=== PATIENT | female | born 1970 | race African-American/Black ===

== ENCOUNTER 2020-10-05 18:43 | Inpatient (IN) | payer BC ==
[2020-10-05] MEDS ORDERED: VANCOMYCIN 1 GM in D5W (PRE-DOCKED) 1,000 MG/250 ML IVPB ONE (19:50)
[2020-10-05] MEDS ORDERED: PIPERACILLIN/TAZOB 3.375 GM 3.375 GM in DEXTROSE 5%-WATER - 50 ML IVPB ONE (19:51)
[2020-10-05] MEDS ORDERED: PIPERACILLIN/TAZOB 3.375 GM 3.375 GM/50 ML BAG IVPB ONE (20:08)
[2020-10-05 20:20] LABS: HEMOGLOBIN 11.4 GM/dL (10.7-15.3); MCH 24.4 pg (25.7-33.7); MCHC 31.8 g/dl (32.0-36.0); MEAN CELL VOLUME 76.7 fl (80-96); MEAN PLT VOLUME 7.6 fl (7.5-11.1); PLATELET COUNT 304 K/MM3 (134-434); RBC 4.69 M/mm3 (3.60-5.2); RDW 17.7 % (11.6-15.6); WHITE BLOOD COUNT 6.5 K/mm3 (4.0-10.0)
[2020-10-05 20:27] LABS: INR 0.86 (0.83-1.09); PROTHROMBIN TIME (PATIENT) 10.6 SEC (9.7-13.0)
[2020-10-05 20:39] LABS: POTASSIUM 4.2 mmol/L (3.5-5.1)
[2020-10-05 20:43] LABS: ALBUMIN 3.7 g/dl (3.4-5.0); BLOOD UREA NITROGEN 11.6 mg/dL (7-18); CALCIUM 9.1 mg/dL (8.5-10.1)
[2020-10-05 20:47] LABS: CREATININE 0.8 mg/dL (0.55-1.3)
[2020-10-05] MEDS ORDERED: VANCOMYCIN 1 GRAM (PRE-DOCKED) 1,000 MG/250 ML BAG IVPB ONE (20:54)
[2020-10-05] MEDS ORDERED: SODIUM CHLORIDE 0.9% 500 ML INFUS.BAG IV ONE (21:19)
[2020-10-05] MEDS ORDERED: INSULIN REGULAR HUMAN 100 UNITS/ML *VIAL SQ ONE (21:20)
[2020-10-05] MEDS ORDERED: INSULIN REGULAR HUMAN 100 UNITS/ML *VIAL ONE (21:28)
[2020-10-06] MEDS ORDERED: INSULIN SLIDING SCALE (NOVOLOG) 1 VIAL SQ SCH (00:30)
[2020-10-06] MEDS ORDERED: VANCOMYCIN 1 GM PREMIX - 1 GM/200 ML BAG IVPB SCH ×2 (00:45→21:00)
[2020-10-06] MEDS ORDERED: PIPERACILLIN/TAZOB 3.375 GM 3.375 GM in DEXTROSE 5%-WATER - 50 ML IVPB SCH (00:45)
[2020-10-06] MEDS ORDERED: PREGABALIN 100 MG CAPSULE ONE ×2 (01:59→14:07)
[2020-10-06] MEDS: PREGABALIN 100 MG CAPSULE PO SCH ×4 (02:01→22:02)
[2020-10-06] MEDS: TIZANIDINE HCL 2 MG TABLET PO SCH ×4 (02:54→22:02)
[2020-10-06] MEDS: DULoxetine HCL 20 MG CAPSULE.DR PO SCH ×2 (02:54→10:13)
[2020-10-06] MEDS ORDERED: PIPERACILLIN/TAZOB 3.375 GM 3.375 GM/50 ML BAG IVPB ONE ×2 (06:11→11:03)
[2020-10-06] MEDS: PIPERACILLIN/TAZOB 3.375 GM 3.375 GM in DEXTROSE 5%-WATER - 50 ML IVPB SCH ×3 (06:19→17:25)
[2020-10-06] MEDS: INSULIN SLIDING SCALE (NOVOLOG) 1 VIAL SQ SCH ×4 (07:38→22:14)
[2020-10-06 07:53] LABS: INR 0.83 (0.83-1.09); PROTHROMBIN TIME (PATIENT) 10.3 SEC (9.7-13.0)
[2020-10-06 07:56] LABS: ACTIVATED PTT 26.1 SECONDS (25.2-36.5)
[2020-10-06 08:00] LABS: HEMATOCRIT 34.2 % (32.4-45.2); HEMOGLOBIN 10.9 GM/dL (10.7-15.3); MCH 24.3 pg (25.7-33.7); MCHC 31.8 g/dl (32.0-36.0); MEAN CELL VOLUME 76.3 fl (80-96); MEAN PLT VOLUME 7.9 fl (7.5-11.1); PLATELET COUNT 296 K/MM3 (134-434); RBC 4.48 M/mm3 (3.60-5.2); RDW 17.3 % (11.6-15.6); WHITE BLOOD COUNT 5.3 K/mm3 (4.0-10.0)
[2020-10-06 08:04] LABS: CHLORIDE 107 mmol/L (98-107); POTASSIUM 4.2 mmol/L (3.5-5.1); SODIUM 141 mmol/L (136-145)
[2020-10-06 08:16] LABS: CHOLESTEROL 213 mg/dL (50-200); TRIGLYCERIDES 52 mg/dL (0-150)
[2020-10-06 08:17] LABS: ANION GAP 8 MMOL/L (8-16); BLOOD UREA NITROGEN 10.7 mg/dL (7-18); CALCIUM 8.5 mg/dL (8.5-10.1); CO2 27 mmol/L (21-32); GLUCOSE,RANDOM 129 mg/dL (74-106); LDL CHOLESTEROL (ONLY SJRH) 106 mg/dL (5-100)
[2020-10-06 08:18] LABS: MAGNESIUM 1.9 mg/dL (1.8-2.4)
[2020-10-06 08:19] LABS: HDL CHOLESTEROL 98 mg/dL (40-60); SGPT/ALT 18 U/L (13-61)
[2020-10-06 08:20] LABS: CREATININE 0.6 mg/dL (0.55-1.3); PHOSPHOROUS 4.3 mg/dL (2.5-4.9); SGOT/AST 13 U/L (15-37)
[2020-10-06 08:21] LABS: BILIRUBIN,TOTAL 0.5 mg/dL (0.2-1); TOT PROT 5.8 g/dl (6.4-8.2)
[2020-10-06 08:22] LABS: ALK PHOS 80 U/L (45-117)
[2020-10-06] MEDS ORDERED: LISINOPRIL 5 MG TABLET ONE (10:03)
[2020-10-06] MEDS ORDERED: PT OWN MED DRAWER 7, Y5N ONE (10:05)
[2020-10-06] MEDS: LISINOPRIL 5 MG TABLET PO SCH (10:55)
[2020-10-06 15:19] LABS: RETICULOCYTES 1.13 % (0.5-1.5)
[2020-10-06 15:42] LABS: IRON SERUM 40 ug/dL (50-175)
[2020-10-06 15:43] LABS: TOTAL IRON BINDING CAPACITY 364 ug/dL (250-450)
[2020-10-06 15:47] LABS: ERYTHROCYTE SEDIMENTATION RATE 9 mm/hr (0-30)
[2020-10-06] MEDS ORDERED: INSULIN (LEVEMIR) 100 UNITS/ML UNITS SQ SCH (22:00)
[2020-10-06] MEDS: ATORVASTATIN CA 40 MG TABLET (FP) PO SCH (22:02)
[2020-10-06 22:37] VITALS: BMI 22.4
[2020-10-07] MEDS ORDERED: DEXTROSE 5%-WATER - 50 ML IVPB ONE ×3 (00:07→17:36)
[2020-10-07] MEDS ORDERED: PIPERACILLIN/TAZOBACTAM 3.375 GM VIAL IVPB ONE ×3 (00:07→17:36)
[2020-10-07] MEDS: PIPERACILLIN/TAZOB 3.375 GM 3.375 GM in DEXTROSE 5%-WATER - 50 ML IVPB SCH ×3 (02:12→18:56)
[2020-10-07] MEDS ORDERED: PIPERACILLIN/TAZOB 3.375 GM 3.375 GM in DEXTROSE 5%-WATER - 50 ML IVPB SCH (03:00)
[2020-10-07] MEDS: TIZANIDINE HCL 2 MG TABLET PO SCH ×3 (05:46→21:02)
[2020-10-07] MEDS: PREGABALIN 100 MG CAPSULE PO SCH ×3 (05:46→21:02)
[2020-10-07] MEDS: INSULIN SLIDING SCALE (NOVOLOG) 1 VIAL SQ SCH ×4 (06:09→21:06)
[2020-10-07] MEDS ORDERED: INSULIN (LEVEMIR) 100 UNITS/ML UNITS SQ SCH (07:00)
[2020-10-07 08:54] LABS: BASO % 0.8 % (0-2.0); EOS % 1.6 % (0-4.5); HEMOGLOBIN 11.4 GM/dL (10.7-15.3); LYMPH % 37.5 % (8-40); MCH 24.2 pg (25.7-33.7); MCHC 31.6 g/dl (32.0-36.0); MEAN CELL VOLUME 76.6 fl (80-96); MEAN PLT VOLUME 7.9 fl (7.5-11.1); MONO % 7.3 % (3.8-10.2); NEUT % 52.8 % (42.8-82.8); PLATELET COUNT 321 K/MM3 (134-434); RBC 4.71 M/mm3 (3.60-5.2); RDW 17.6 % (11.6-15.6); WHITE BLOOD COUNT 6.7 K/mm3 (4.0-10.0)
[2020-10-07 09:15] LABS: CHLORIDE 103 mmol/L (98-107); POTASSIUM 4.5 mmol/L (3.5-5.1); SODIUM 137 mmol/L (136-145)
[2020-10-07 09:18] LABS: ALBUMIN 3.3 g/dl (3.4-5.0); ANION GAP 8 MMOL/L (8-16); CO2 27 mmol/L (21-32); GLUCOSE,RANDOM 129 mg/dL (74-106); MAGNESIUM 1.9 mg/dL (1.8-2.4)
[2020-10-07 09:19] LABS: BLOOD UREA NITROGEN 9.8 mg/dL (7-18)
[2020-10-07 09:21] LABS: CREATININE 0.6 mg/dL (0.55-1.3); SGOT/AST 13 U/L (15-37); SGPT/ALT 18 U/L (13-61)
[2020-10-07 09:22] LABS: BILIRUBIN,TOTAL 0.9 mg/dL (0.2-1); TOT PROT 6.4 g/dl (6.4-8.2)
[2020-10-07 09:23] LABS: ALK PHOS 82 U/L (45-117); PHOSPHOROUS 4.4 mg/dL (2.5-4.9)
[2020-10-07 10:33] LABS: ERYTHROCYTE SEDIMENTATION RATE 9 mm/hr (0-30)
[2020-10-07] MEDS ORDERED: PT OWN MED DRAWER 7, Y5N ONE (11:39)
[2020-10-07] MEDS: LISINOPRIL 5 MG TABLET PO SCH (11:45)
[2020-10-07] MEDS: DULoxetine HCL 20 MG CAPSULE.DR PO SCH (11:45)
[2020-10-07] MEDS ORDERED: INSULIN (NOVOLOG) ASPART 100 UNITS/ML 10ML VIAL ONE (20:22)
[2020-10-07] MEDS ORDERED: VANCOMYCIN 1 GM PREMIX - 1 GM/200 ML BAG IVPB SCH (21:00)
[2020-10-07] MEDS: ATORVASTATIN CA 40 MG TABLET (FP) PO SCH (21:03)
[2020-10-07] MEDS: INSULIN (LEVEMIR) 100 UNITS/ML UNITS SQ SCH (21:05)
[2020-10-08] MEDS ORDERED: DEXTROSE 5%-WATER - 50 ML IVPB ONE ×3 (02:47→18:00)
[2020-10-08] MEDS ORDERED: PIPERACILLIN/TAZOBACTAM 3.375 GM VIAL IVPB ONE ×3 (02:47→18:00)
[2020-10-08] MEDS: PIPERACILLIN/TAZOB 3.375 GM 3.375 GM in DEXTROSE 5%-WATER - 50 ML IVPB SCH ×3 (03:18→18:05)
[2020-10-08] MEDS ORDERED: INSULIN (NOVOLOG) ASPART 100 UNITS/ML 10ML VIAL ONE (06:13)
[2020-10-08] MEDS: PREGABALIN 100 MG CAPSULE PO SCH ×3 (06:52→21:48)
[2020-10-08] MEDS: INSULIN SLIDING SCALE (NOVOLOG) 1 VIAL SQ SCH ×4 (06:53→21:49)
[2020-10-08] MEDS: TIZANIDINE HCL 2 MG TABLET PO SCH ×3 (06:53→21:48)
[2020-10-08] MEDS: INSULIN (LEVEMIR) 100 UNITS/ML UNITS SQ SCH ×2 (06:53→21:48)
[2020-10-08 08:50] LABS: BASO % 0.8 % (0-2.0); EOS % 1.6 % (0-4.5); HEMATOCRIT 36.4 % (32.4-45.2); HEMOGLOBIN 11.1 GM/dL (10.7-15.3); LYMPH % 32.7 % (8-40); MCH 23.5 pg (25.7-33.7); MCHC 30.6 g/dl (32.0-36.0); MEAN CELL VOLUME 76.8 fl (80-96); MEAN PLT VOLUME 7.6 fl (7.5-11.1); NEUT % 56.9 % (42.8-82.8); PLATELET COUNT 292 K/MM3 (134-434); RBC 4.73 M/mm3 (3.60-5.2); RDW 17.6 % (11.6-15.6); WHITE BLOOD COUNT 6.1 K/mm3 (4.0-10.0)
[2020-10-08 08:58] LABS: POTASSIUM 4.3 mmol/L (3.5-5.1)
[2020-10-08 09:02] LABS: CALCIUM 8.7 mg/dL (8.5-10.1); MAGNESIUM 1.9 mg/dL (1.8-2.4)
[2020-10-08 09:03] LABS: BLOOD UREA NITROGEN 9.2 mg/dL (7-18)
[2020-10-08 09:05] LABS: CREATININE 0.5 mg/dL (0.55-1.3)
[2020-10-08 09:07] LABS: BILIRUBIN,TOTAL 0.6 mg/dL (0.2-1); TOT PROT 5.9 g/dl (6.4-8.2)
[2020-10-08] MEDS: LISINOPRIL 5 MG TABLET PO SCH (09:41)
[2020-10-08] MEDS: DULoxetine HCL 20 MG CAPSULE.DR PO SCH (09:41)
[2020-10-08] MEDS: ATORVASTATIN CA 40 MG TABLET (FP) PO SCH (21:48)
[2020-10-09] MEDS ORDERED: PIPERACILLIN/TAZOBACTAM 3.375 GM VIAL IVPB ONE ×3 (01:26→17:30)
[2020-10-09] MEDS ORDERED: DEXTROSE 5%-WATER - 50 ML IVPB ONE ×3 (01:26→17:30)
[2020-10-09] MEDS: PIPERACILLIN/TAZOB 3.375 GM 3.375 GM in DEXTROSE 5%-WATER - 50 ML IVPB SCH ×3 (01:30→17:32)
[2020-10-09] MEDS ORDERED: DEXTROSE 50%-WATER 25 GM/50 ML DISP.SYRIN IVPUSH ONE (02:52)
[2020-10-09] MEDS ORDERED: DEXTROSE 50%-WATER 25 GM/50 ML DISP.SYRIN ONE (02:55)
[2020-10-09] MEDS: PREGABALIN 100 MG CAPSULE PO SCH ×3 (06:34→22:12)
[2020-10-09] MEDS: INSULIN (LEVEMIR) 100 UNITS/ML UNITS SQ SCH ×2 (06:35→22:13)
[2020-10-09] MEDS: INSULIN SLIDING SCALE (NOVOLOG) 1 VIAL SQ SCH ×4 (06:35→22:13)
[2020-10-09] MEDS: TIZANIDINE HCL 2 MG TABLET PO SCH ×3 (06:35→22:12)
[2020-10-09 06:54] LABS: BASO % 1.2 % (0-2.0); EOS % 1.3 % (0-4.5); HEMATOCRIT 36.5 % (32.4-45.2); HEMOGLOBIN 11.6 GM/dL (10.7-15.3); LYMPH % 28.9 % (8-40); MCH 24.4 pg (25.7-33.7); MCHC 31.8 g/dl (32.0-36.0); MEAN CELL VOLUME 76.6 fl (80-96); MONO % 7.6 % (3.8-10.2); PLATELET COUNT 285 K/MM3 (134-434); RBC 4.76 M/mm3 (3.60-5.2); RDW 17.7 % (11.6-15.6); WHITE BLOOD COUNT 7.9 K/mm3 (4.0-10.0)
[2020-10-09 07:07] LABS: POTASSIUM 4.7 mmol/L (3.5-5.1)
[2020-10-09 07:09] LABS: BLOOD UREA NITROGEN 9.9 mg/dL (7-18); CALCIUM 8.6 mg/dL (8.5-10.1)
[2020-10-09 07:13] LABS: CREATININE 0.6 mg/dL (0.55-1.3)
[2020-10-09] MEDS: LISINOPRIL 5 MG TABLET PO SCH (09:26)
[2020-10-09] MEDS: DULoxetine HCL 20 MG CAPSULE.DR PO SCH (09:26)
[2020-10-09 10:52] LABS: PLATELET ESTIMATE NORMAL
[2020-10-09] MEDS ORDERED: INSULIN (NOVOLOG) ASPART 100 UNITS/ML 10ML VIAL ONE (11:07)
[2020-10-09] MEDS ORDERED: INSULIN (LEVEMIR) 100 UNITS/ML UNITS SQ SCH ×3 (11:44→23:40)
[2020-10-09] MEDS: ATORVASTATIN CA 40 MG TABLET (FP) PO SCH (22:12)
[2020-10-09] MEDS ORDERED: SODIUM CHLORIDE 500 ML IV STA (23:28)
[2020-10-10] MEDS ORDERED: PIPERACILLIN/TAZOBACTAM 3.375 GM VIAL IVPB ONE ×3 (02:43→17:07)
[2020-10-10] MEDS ORDERED: DEXTROSE 5%-WATER - 50 ML IVPB ONE ×3 (02:43→17:07)
[2020-10-10] MEDS: PIPERACILLIN/TAZOB 3.375 GM 3.375 GM in DEXTROSE 5%-WATER - 50 ML IVPB SCH ×3 (02:45→17:11)
[2020-10-10] MEDS: PREGABALIN 100 MG CAPSULE PO SCH ×2 (06:00→14:00)
[2020-10-10] MEDS: TIZANIDINE HCL 2 MG TABLET PO SCH ×2 (06:00→14:00)
[2020-10-10] MEDS: INSULIN SLIDING SCALE (NOVOLOG) 1 VIAL SQ SCH ×3 (06:05→17:18)
[2020-10-10] MEDS ORDERED: PT OWN MED DRAWER 7, Y5N ONE (09:26)
[2020-10-10 09:31] LABS: BASO % 0.9 % (0-2.0); EOS % 3.1 % (0-4.5); HEMATOCRIT 37.5 % (32.4-45.2); LYMPH % 31.8 % (8-40); MCH 24.5 pg (25.7-33.7); MCHC 31.9 g/dl (32.0-36.0); MEAN CELL VOLUME 76.8 fl (80-96); MEAN PLT VOLUME 7.4 fl (7.5-11.1); NEUT % 56.2 % (42.8-82.8); PLATELET COUNT 326 K/MM3 (134-434); RBC 4.89 M/mm3 (3.60-5.2); RDW 17.7 % (11.6-15.6); WHITE BLOOD COUNT 7.2 K/mm3 (4.0-10.0)
[2020-10-10] MEDS: DULoxetine HCL 20 MG CAPSULE.DR PO SCH (09:32)
[2020-10-10 09:44] LABS: POTASSIUM 4.8 mmol/L (3.5-5.1)
[2020-10-10 10:03] LABS: BLOOD UREA NITROGEN 10.3 mg/dL (7-18)
[2020-10-10 10:06] LABS: CREATININE 0.7 mg/dL (0.55-1.3)
[2020-10-10 14:21] VITALS: BP 112/73; PULSE 73; TEMP 98.3
== END 2020-10-10 18:17 | disposition home or self-care (01) | DRG 638 ==
LOC: JER 18:43 → JERBED 20:12 → J8W 10-06 21:21
PROVIDERS: ADMIT Internal Medicine; ATTEND Internal Medicine
PROC: 02HV33Z Insertion of Infusion Device into Superior Vena Cava, Percutaneous Approach (ICD-10-PCS; principal; 2020-10-10)
PROC: B518ZZA Fluoroscopy of Superior Vena Cava, Guidance (ICD-10-PCS; 2020-10-10)
PROC: B50MYZZ Plain Radiography of Right Upper Extremity Veins using Other Contrast (ICD-10-PCS; 2020-10-10)
DX: E11.69 Type 2 diabetes mellitus with other specified complication (principal); M86.9 Osteomyelitis, unspecified; L02.611 Cutaneous abscess of right foot; E11.65 Type 2 diabetes mellitus with hyperglycemia; E11.40 Type 2 diabetes mellitus with diabetic neuropathy, unspecified; E11.621 Type 2 diabetes mellitus with foot ulcer; L97.519 Non-pressure chronic ulcer of other part of right foot with unspecified severity; L60.0 Ingrowing nail; F17.210 Nicotine dependence, cigarettes, uncomplicated; B95.61 Methicillin susceptible Staphylococcus aureus infection as the cause of diseases classified elsewhere; L03.031 Cellulitis of right toe
CPT/HCPCS: 36415; 36569; 73630-TC-RT-FY; 73660-TC-FY; 73718-TC-RT; 75820-TC-FY; 77001-TC-FY; 78315-TC; 80048; 80053; 80061; 82607; 82746; 82962; 83036; 83540; 83550; 83605; 83721; 83735; 84100; 84466; 84703; 85025; 85027; 85045; 85610; 85651; 85730; 86140; 86850; 86900; 86901; 87040; 87070; 87186; 87205; 93005; 93010; 99285-25; A9503; C1751; C9803; U0003

== ENCOUNTER 2020-10-23 08:41 | Inpatient (IN) | payer BC ==
[2020-10-23] MEDS ORDERED: SODIUM CHLORIDE 1,000 ML IV STA ×2 (08:53→08:58)
[2020-10-23 09:35] LABS: EPI CELLS 15 /uL (0-25.1); HYALINE CASTS 1 /uL (0-3.1); URINE APPEARANCE CLEAR; URINE BACTERIA 51 /uL (0-1359); URINE BILIRUBIN NEGATIVE (NEGATIVE); URINE COLOR YELLOW; URINE GLUCOSE (UA) 3+ (NEGATIVE); URINE KETONE 3+ (NEGATIVE); URINE LEUK ESTERASE NEGATIVE (NEGATIVE); URINE NITRITE NEGATIVE (NEGATIVE); URINE PROTEIN TRACE (NEGATIVE); URINE RBC 6 /uL (0-23.9); URINE UROBILINOGEN 0.2 mg/dL (0.2-1.0); URINE WBC 6 /uL (0-25.8)
[2020-10-23 09:45] LABS: BASO % 0.5 % (0-2.0); HEMATOCRIT 40.9 % (32.4-45.2); HEMOGLOBIN 11.8 GM/dL (10.7-15.3); LYMPH % 6.9 % (8-40); MCH 24.7 pg (25.7-33.7); MCHC 28.9 g/dl (32.0-36.0); MEAN CELL VOLUME 85.6 fl (80-96); MEAN PLT VOLUME 8.8 fl (7.5-11.1); MONO % 5.6 % (3.8-10.2); PLATELET COUNT 373 K/MM3 (134-434); RBC 4.78 M/mm3 (3.60-5.2); RDW 19.7 % (11.6-15.6); WHITE BLOOD COUNT 24.8 K/mm3 (4.0-10.0)
[2020-10-23 09:53] LABS: INR 0.88 (0.83-1.09); PROTHROMBIN TIME (PATIENT) 10.9 SEC (9.7-13.0)
[2020-10-23 09:56] LABS: ACTIVATED PTT 28.4 SECONDS (25.2-36.5)
[2020-10-23 10:12] LABS: ALBUMIN 4.3 g/dl (3.4-5.0); CALCIUM 9.6 mg/dL (8.5-10.1)
[2020-10-23 10:14] LABS: CREATININE 1.9 mg/dL (0.55-1.3)
[2020-10-23 10:15] LABS: BILIRUBIN,TOTAL 0.6 mg/dL (0.2-1); TOT PROT 7.9 g/dl (6.4-8.2)
[2020-10-23 10:21] LABS: BLOOD UREA NITROGEN 36.6 mg/dL (7-18); MAGNESIUM 2.5 mg/dL (1.8-2.4)
[2020-10-23 10:23] LABS: PHOSPHOROUS 8.1 mg/dL (2.5-4.9)
[2020-10-23 10:25] LABS: POTASSIUM 6.1 mmol/L (3.5-5.1)
[2020-10-23 10:30] LABS: VENOUS BASE EXCESS -24.9 mmol/L (-2-2); VENOUS O2 SATURATION 47.2 % (70-80); VENOUS PCO2 27.9 mmHg (38-52)
[2020-10-23 10:32] LABS: VENOUS PH 6.953 (7.310-7.410)
[2020-10-23] MEDS ORDERED: INSULIN REGULAR HUMAN 100 UNITS/ML *VIAL* (FOR IVP) IVPUSH ONE (10:32)
[2020-10-23] MEDS ORDERED: INSULIN REGULAR 100 UNITS in SODIUM CHLORIDE 99 ML IVPB SCH ×2 (10:45→18:45)
[2020-10-23] MEDS ORDERED: VANCOMYCIN 1 GM in D5W (PRE-DOCKED) 1,000 MG/250 ML IVPB ONE ×2 (10:52→23:15)
[2020-10-23] MEDS ORDERED: PIPERACILLIN/TAZOB 2.25 GM 2.25 GM in DEXTROSE 5%-WATER - 50 ML IVPB ONE (10:53)
[2020-10-23 13:00] LABS: ANISOCYTOSIS 0; MACROCYTOSIS 0; PLATELET ESTIMATE NORMAL
[2020-10-23] MEDS ORDERED: PIPERACILLIN/TAZOB 2.25 GM 2.25 GM/50 ML BAG IVPB ONE ×3 (13:06→21:36)
[2020-10-23] MEDS ORDERED: VANCOMYCIN 1 GRAM (PRE-DOCKED) 1,000 MG/250 ML BAG IVPB ONE (13:06)
[2020-10-23 13:37] LABS: POTASSIUM 4.7 mmol/L (3.5-5.1)
[2020-10-23 13:38] LABS: CALCIUM 8.6 mg/dL (8.5-10.1)
[2020-10-23 13:42] LABS: CREATININE 1.7 mg/dL (0.55-1.3)
[2020-10-23] MEDS ORDERED: SODIUM CHLORIDE 0.9%/KCL 20 MEQ/1,000 ML INFUS.BAG IV SCH (14:15)
[2020-10-23] MEDS: PIPERACILLIN/TAZOB 2.25 GM 2.25 GM in DEXTROSE 5%-WATER - 50 ML IVPB SCH ×2 (15:37→21:36)
[2020-10-23 15:38] LABS: POTASSIUM 4.8 mmol/L (3.5-5.1)
[2020-10-23 15:39] LABS: CALCIUM 8.6 mg/dL (8.5-10.1)
[2020-10-23 15:41] LABS: BLOOD UREA NITROGEN 33.3 mg/dL (7-18)
[2020-10-23 15:42] LABS: CREATININE 1.6 mg/dL (0.55-1.3)
[2020-10-23] MEDS ORDERED: LACTATED RINGERS SOLUTION 1000 ML INFUS.BAG IV ONE ×2 (17:50→19:27)
[2020-10-23 18:07] LABS: POTASSIUM 4.6 mmol/L (3.5-5.1)
[2020-10-23 18:08] LABS: CALCIUM 8.6 mg/dL (8.5-10.1)
[2020-10-23 18:09] LABS: BLOOD UREA NITROGEN 30.6 mg/dL (7-18)
[2020-10-23 18:12] LABS: CREATININE 1.5 mg/dL (0.55-1.3)
[2020-10-23 18:17] LABS: VENOUS BASE EXCESS -14.7 mmol/L (-2-2); VENOUS O2 SATURATION 63.1 % (70-80); VENOUS PCO2 27.4 mmHg (38-52); VENOUS PH 7.232 (7.310-7.410)
[2020-10-23] MEDS: INSULIN SLIDING SCALE (NOVOLOG) 1 VIAL SQ SCH ×2 (19:57→22:22)
[2020-10-23] MEDS ORDERED: DEXTROSE 5%-WATER - 1,000 ML IV SCH (20:15)
[2020-10-23 21:13] LABS: CALCIUM 8.2 mg/dL (8.5-10.1)
[2020-10-23 21:14] LABS: BLOOD UREA NITROGEN 26.4 mg/dL (7-18)
[2020-10-23] MEDS ORDERED: DEXTROSE 5%-0.45% SALINE 1,000 ML IV SCH (21:15)
[2020-10-23 21:16] LABS: CREATININE 1.2 mg/dL (0.55-1.3)
[2020-10-23 21:37] LABS: MAGNESIUM 1.7 mg/dL (1.8-2.4)
[2020-10-23] MEDS ORDERED: INSULIN (LEVEMIR) 100 UNITS/ML UNITS SQ ONE ×2 (22:20→22:23)
[2020-10-23] MEDS ORDERED: ACYCLOVIR 500 MG (50MG/ML) VIAL IVPUSH ONE (23:10)
[2020-10-24 00:08] LABS: HEMATOCRIT 33.1 % (32.4-45.2); HEMOGLOBIN 10.1 GM/dL (10.7-15.3); MCHC 30.5 g/dl (32.0-36.0); MEAN CELL VOLUME 78.8 fl (80-96); MEAN PLT VOLUME 7.8 fl (7.5-11.1); PLATELET COUNT 275 K/MM3 (134-434); RBC 4.21 M/mm3 (3.60-5.2); RDW 18.1 % (11.6-15.6); WHITE BLOOD COUNT 21.1 K/mm3 (4.0-10.0)
[2020-10-24 00:16] LABS: VENOUS BASE EXCESS -10.1 mmol/L (-2-2); VENOUS O2 SATURATION 60.3 % (70-80); VENOUS PCO2 36.8 mmHg (38-52); VENOUS PH 7.26 (7.310-7.410)
[2020-10-24 00:22] LABS: POTASSIUM 4.8 mmol/L (3.5-5.1)
[2020-10-24 00:23] LABS: BLOOD UREA NITROGEN 23.8 mg/dL (7-18); CALCIUM 8.5 mg/dL (8.5-10.1)
[2020-10-24 00:26] LABS: CREATININE 1.1 mg/dL (0.55-1.3)
[2020-10-24] MEDS ORDERED: INSULIN (NOVOLOG) ASPART 100 UNITS/ML 10ML VIAL SQ ONE (00:52)
[2020-10-24] MEDS ORDERED: VANCOMYCIN 1 GRAM (PRE-DOCKED) 1,000 MG/250 ML BAG IVPB ONE (00:53)
[2020-10-24] MEDS ORDERED: SODIUM CHLORIDE 0.45% 1,000 ML IV SCH (01:00)
[2020-10-24] MEDS ORDERED: ACYCLOVIR INJECTION 560 MG in DEXTROSE 5%-WATER - 100 ML IVPB ONE (01:00)
[2020-10-24 01:19] LABS: ARTERIAL BLD GAS O2 SATURATION 98.6 mmHg (95-98); ARTERIAL BLOOD GAS BASE EXCESS -9.5 mmol/L (-2-2); ARTERIAL BLOOD GAS PO2 133.6 mmHg (80-100); ARTERIAL BLOOD GAS pH 7.359 (7.350-7.450)
[2020-10-24 01:20] LABS: ALLENS TEST POSITIVE
[2020-10-24] MEDS ORDERED: MAGNESIUM SULF 50% (8.12 MEQ/2 ML-1 GM VIAL) IVPB ONE (01:24)
[2020-10-24] MEDS ORDERED: ONDANSETRON 4 MG/2 ML VIAL IVPUSH ONE (01:25)
[2020-10-24] MEDS ORDERED: MAGNESIUM 1GM/D5W - 1 GM/100 ML IVPB IVPB ONE (02:06)
[2020-10-24] MEDS ORDERED: ONDANSETRON 4 MG/2 ML VIAL ONE (02:06)
[2020-10-24] MEDS ORDERED: PIPERACILLIN/TAZOB 2.25 GM 2.25 GM/50 ML BAG IVPB ONE ×3 (03:01→14:02)
[2020-10-24] MEDS ORDERED: Insulin (LOG) Aspart 100 UNITS/ML VIAL SQ STA (03:12)
[2020-10-24] MEDS: PIPERACILLIN/TAZOB 2.25 GM 2.25 GM in DEXTROSE 5%-WATER - 50 ML IVPB SCH ×4 (03:32→21:30)
[2020-10-24 04:46] LABS: POTASSIUM 3.7 mmol/L (3.5-5.1)
[2020-10-24 04:49] LABS: BLOOD UREA NITROGEN 19.4 mg/dL (7-18); CALCIUM 8.4 mg/dL (8.5-10.1)
[2020-10-24 04:52] LABS: CREATININE 1.1 mg/dL (0.55-1.3)
[2020-10-24 05:25] LABS: BASO % 0.9 % (0-2.0); HEMATOCRIT 32.4 % (32.4-45.2); HEMOGLOBIN 10.3 GM/dL (10.7-15.3); LYMPH % 6.4 % (8-40); MCH 24.3 pg (25.7-33.7); MEAN CELL VOLUME 76.1 fl (80-96); MEAN PLT VOLUME 7.4 fl (7.5-11.1); MONO % 7.2 % (3.8-10.2); NEUT % 85.5 % (42.8-82.8); PLATELET COUNT 270 K/MM3 (134-434); RBC 4.25 M/mm3 (3.60-5.2); RDW 18.1 % (11.6-15.6); WHITE BLOOD COUNT 21.7 K/mm3 (4.0-10.0)
[2020-10-24 05:43] LABS: POTASSIUM 3.7 mmol/L (3.5-5.1)
[2020-10-24 05:45] LABS: ALBUMIN 3.3 g/dl (3.4-5.0); BLOOD UREA NITROGEN 19.7 mg/dL (7-18); CALCIUM 8.4 mg/dL (8.5-10.1); MAGNESIUM 2.2 mg/dL (1.8-2.4)
[2020-10-24 05:49] LABS: PHOSPHOROUS 2.2 mg/dL (2.5-4.9)
[2020-10-24 05:50] LABS: BILIRUBIN,TOTAL 0.4 mg/dL (0.2-1)
[2020-10-24 05:51] LABS: PLATELET ESTIMATE ADEQUATE
[2020-10-24 06:40] LABS: COCAINE, UR NEGATIVE ng/ml (CUTOFF=300); METHADONE, UR NEGATIVE ng/ml (CUTOFF=300); PHENCYCLIDINE,URINE NEGATIVE ng/ml (CUTOFF=25); URINE AMPHETAMINES NEGATIVE ng/ml (CUTOFF=500); URINE BARBITURATES NEGATIVE ng/ml (CUTOFF=200); URINE BENZODIAZEPINES NEGATIVE ng/ml (CUTOFF=200)
[2020-10-24 06:45] LABS: OPIATES, URI NEGATIVE ng/ml (CUTOFF=300)
[2020-10-24] MEDS ORDERED: INSULIN (LEVEMIR) 100 UNITS/ML UNITS SQ ONE ×2 (08:02→19:20)
[2020-10-24] MEDS ORDERED: ENOXAPARIN NA (PORCINE) 40 MG/0.4 ML DISP.SYRIN SQ ONE (08:02)
[2020-10-24] MEDS: INSULIN SLIDING SCALE (NOVOLOG) 1 VIAL SQ SCH ×3 (08:29→16:57)
[2020-10-24] MEDS: INSULIN (LEVEMIR) 100 UNITS/ML UNITS SQ SCH (08:30)
[2020-10-24] MEDS ORDERED: INSULIN (LEVEMIR) 100 UNITS/ML UNITS SQ SCH ×2 (10:00→22:00)
[2020-10-24] MEDS ORDERED: ENOXAPARIN NA (PORCINE) 40 MG/0.4 ML DISP.SYRIN SQ SCH (10:00)
[2020-10-24 13:38] LABS: POTASSIUM 3.5 mmol/L (3.5-5.1)
[2020-10-24 13:40] LABS: CALCIUM 9.2 mg/dL (8.5-10.1)
[2020-10-24 13:41] LABS: BLOOD UREA NITROGEN 15.2 mg/dL (7-18)
[2020-10-24 13:42] LABS: MAGNESIUM 2.2 mg/dL (1.8-2.4)
[2020-10-24] MEDS: SODIUM CHLORIDE 1,000 ML IV SCH (14:23)
[2020-10-24 19:42] LABS: POTASSIUM 3.4 mmol/L (3.5-5.1)
[2020-10-24 19:46] LABS: BLOOD UREA NITROGEN 13.4 mg/dL (7-18); MAGNESIUM 2.3 mg/dL (1.8-2.4)
[2020-10-24 19:48] LABS: CALCIUM 8.9 mg/dL (8.5-10.1)
[2020-10-24 19:50] LABS: CREATININE 0.9 mg/dL (0.55-1.3)
[2020-10-24] MEDS ORDERED: ATORVASTATIN CA 40 MG TABLET (FP) ONE (21:20)
[2020-10-24] MEDS: ATORVASTATIN CA 40 MG TABLET (FP) PO SCH (21:30)
[2020-10-25] MEDS ORDERED: TRIMETHOBENZAMIDE HCL 300 MG CAPSULE PO ONE (02:00)
[2020-10-25] MEDS: INSULIN SLIDING SCALE (NOVOLOG) 1 VIAL SQ SCH ×7 (02:09→22:59)
[2020-10-25] MEDS ORDERED: PIPERACILLIN/TAZOBACTAM 2.25 GM VIAL IVPB ONE ×4 (02:51→20:56)
[2020-10-25] MEDS ORDERED: DEXTROSE 5%-WATER - 50 ML IVPB ONE ×4 (02:52→20:56)
[2020-10-25] MEDS: PIPERACILLIN/TAZOB 2.25 GM 2.25 GM in DEXTROSE 5%-WATER - 50 ML IVPB SCH ×4 (02:55→21:09)
[2020-10-25] MEDS ORDERED: PANTOPRAZOLE SODIUM 40 MG VIAL IVPUSH ONE (06:12)
[2020-10-25] MEDS ORDERED: SODIUM CHLORIDE 500 ML IV STA ×2 (06:14→21:14)
[2020-10-25] MEDS: INSULIN (LEVEMIR) 100 UNITS/ML UNITS SQ SCH (06:42)
[2020-10-25] MEDS: KCL 10 MEQ IVPB 10 MEQ/100 ML INFUS.BAG IVPB SCH ×3 (08:08→10:13)
[2020-10-25] MEDS ORDERED: PANTOPRAZOLE SODIUM 40 MG VIAL IVPUSH SCH ×2 (10:00→22:00)
[2020-10-25] MEDS ORDERED: PANTOPRAZOLE 40 MG TABLET PO SCH (10:00)
[2020-10-25 11:29] LABS: BASO % 0.3 % (0-2.0); HEMATOCRIT 34.4 % (32.4-45.2); HEMOGLOBIN 10.7 GM/dL (10.7-15.3); LYMPH % 5.8 % (8-40); MCH 24.5 pg (25.7-33.7); MCHC 31.2 g/dl (32.0-36.0); MEAN CELL VOLUME 78.4 fl (80-96); MEAN PLT VOLUME 8.2 fl (7.5-11.1); MONO % 3.2 % (3.8-10.2); NEUT % 90.7 % (42.8-82.8); PLATELET COUNT 261 K/MM3 (134-434); RBC 4.39 M/mm3 (3.60-5.2); RDW 18.8 % (11.6-15.6); WHITE BLOOD COUNT 14.9 K/mm3 (4.0-10.0)
[2020-10-25] MEDS: SODIUM CHLORIDE 1,000 ML IV SCH (11:38)
[2020-10-25 11:53] LABS: INR 0.88 (0.83-1.09); PROTHROMBIN TIME (PATIENT) 10.9 SEC (9.7-13.0)
[2020-10-25 12:20] LABS: ACTIVATED PTT 16.6 SECONDS (25.2-36.5)
[2020-10-25 12:30] LABS: ARTERIAL BLD GAS O2 SATURATION 96.2 mmHg (95-98); ARTERIAL BLOOD GAS BASE EXCESS -11.2 mmol/L (-2-2); ARTERIAL BLOOD GAS PO2 91.4 mmHg (80-100)
[2020-10-25 12:32] LABS: ALLENS TEST POSITIVE
[2020-10-25] MEDS ORDERED: SODIUM CHLORIDE 1,000 ML IV SCH (13:16)
[2020-10-25] MEDS ORDERED: LACTATED RINGERS SOLUTION 1,000 ML/1,000 ML INFUS.BAG IV ONE (13:17)
[2020-10-25] MEDS: INSULIN (NOVOLOG) ASPART 100 UNITS/ML 10ML VIAL SQ SCH ×2 (13:52→17:33)
[2020-10-25 14:02] VITALS: BMI 21.7
[2020-10-25 14:07] LABS: BLOOD UREA NITROGEN 14.6 mg/dL (7-18); CALCIUM 8.2 mg/dL (8.5-10.1); CREATININE 0.8 mg/dL (0.55-1.3); MAGNESIUM 1.9 mg/dL (1.8-2.4); PHOSPHOROUS 2.4 mg/dL (2.5-4.9); POTASSIUM 4.4 mmol/L (3.5-5.1)
[2020-10-25 14:15] LABS: ALBUMIN 3.3 g/dl (3.4-5.0)
[2020-10-25 14:20] LABS: BILIRUBIN,TOTAL 0.6 mg/dL (0.2-1); TOT PROT 6.2 g/dl (6.4-8.2)
[2020-10-25] MEDS ORDERED: POTASSIUM ACETATE IV SCH (15:00)
[2020-10-25] MEDS ORDERED: SODIUM CHLORIDE IV SCH (15:00)
[2020-10-25 15:49] LABS: COCAINE, UR NEGATIVE ng/ml (CUTOFF=300); METHADONE, UR NEGATIVE ng/ml (CUTOFF=300); OPIATES, URI NEGATIVE ng/ml (CUTOFF=300); PHENCYCLIDINE,URINE NEGATIVE ng/ml (CUTOFF=25); URINE AMPHETAMINES NEGATIVE ng/ml (CUTOFF=500)
[2020-10-25 15:52] LABS: URINE BARBITURATES NEGATIVE ng/ml (CUTOFF=200); URINE BENZODIAZEPINES NEGATIVE ng/ml (CUTOFF=200)
[2020-10-25] MEDS ORDERED: LACTATED RINGERS SOLUTION 1,000 ML/1,000 ML INFUS.BAG IV SCH (16:00)
[2020-10-25] MEDS ORDERED: INSULIN SLIDING SCALE (NOVOLOG) 1 VIAL SQ SCH (16:30)
[2020-10-25] MEDS ORDERED: INSULIN (NOVOLOG) ASPART 100 UNITS/ML 10ML VIAL SQ ONE (17:58)
[2020-10-25 18:08] LABS: CHLORIDE 107 mmol/L (98-107); POTASSIUM 4.4 mmol/L (3.5-5.1); SODIUM 139 mmol/L (136-145)
[2020-10-25 18:10] LABS: ANION GAP 12 MMOL/L (8-16); BLOOD UREA NITROGEN 11.9 mg/dL (7-18); CALCIUM 8.6 mg/dL (8.5-10.1); CO2 20 mmol/L (21-32)
[2020-10-25 18:11] LABS: GLUCOSE,RANDOM 361 mg/dL (74-106)
[2020-10-25 18:14] LABS: CREATININE 0.9 mg/dL (0.55-1.3)
[2020-10-25] MEDS: SODIUM CHLORIDE 0.45%/POT 20 MEQ/1,000 ML INFUS.BAG IV SCH (18:23)
[2020-10-25 19:03] LABS: HEMATOCRIT 30.4 % (32.4-45.2); HEMOGLOBIN 9.7 GM/dL (10.7-15.3); MCH 24.6 pg (25.7-33.7); MCHC 31.8 g/dl (32.0-36.0); MEAN CELL VOLUME 77.4 fl (80-96); PLATELET COUNT 229 K/MM3 (134-434); RBC 3.93 M/mm3 (3.60-5.2); RDW 18.7 % (11.6-15.6); WHITE BLOOD COUNT 11.6 K/mm3 (4.0-10.0)
[2020-10-25 19:30] LABS: POTASSIUM 4.1 mmol/L (3.5-5.1)
[2020-10-25 19:36] LABS: BLOOD UREA NITROGEN 10.9 mg/dL (7-18); CALCIUM 8.4 mg/dL (8.5-10.1)
[2020-10-25 19:40] LABS: CREATININE 0.9 mg/dL (0.55-1.3)
[2020-10-25] MEDS: ATORVASTATIN CA 40 MG TABLET (FP) PO SCH (21:09)
[2020-10-25] MEDS: PANTOPRAZOLE SODIUM 40 MG VIAL IVPUSH SCH (21:09)
[2020-10-25] MEDS ORDERED: CHLORHEXIDINE GLUCONATE 4% CLEANSER FOR DECOLONIZATION TP SCH (22:00)
[2020-10-25] MEDS ORDERED: MUPIROCIN 2% TOPICAL OINTMENT FOR DECOLONIZATION NS SCH (22:00)
[2020-10-25 22:23] LABS: POTASSIUM 3.5 mmol/L (3.5-5.1)
[2020-10-25 22:24] LABS: CALCIUM 8.1 mg/dL (8.5-10.1)
[2020-10-25 22:25] LABS: BLOOD UREA NITROGEN 11.6 mg/dL (7-18)
[2020-10-25 22:28] LABS: CREATININE 0.8 mg/dL (0.55-1.3)
[2020-10-26] MEDS ORDERED: PIPERACILLIN/TAZOBACTAM 2.25 GM VIAL IVPB ONE ×4 (01:09→21:00)
[2020-10-26] MEDS ORDERED: DEXTROSE 5%-WATER - 50 ML IVPB ONE ×4 (01:09→21:00)
[2020-10-26 01:37] LABS: LDH 283 U/L (84-246)
[2020-10-26] MEDS: INSULIN SLIDING SCALE (NOVOLOG) 1 VIAL SQ SCH ×8 (02:23→21:25)
[2020-10-26] MEDS: PIPERACILLIN/TAZOB 2.25 GM 2.25 GM in DEXTROSE 5%-WATER - 50 ML IVPB SCH ×4 (02:26→21:24)
[2020-10-26] MEDS: INSULIN (LEVEMIR) 100 UNITS/ML UNITS SQ SCH (06:20)
[2020-10-26 06:21] LABS: BASO % 0.5 % (0-2.0); EOS % 0.2 % (0-4.5); HEMATOCRIT 31.3 % (32.4-45.2); HEMOGLOBIN 10.1 GM/dL (10.7-15.3); LYMPH % 18.3 % (8-40); MCH 24.9 pg (25.7-33.7); MCHC 32.3 g/dl (32.0-36.0); MEAN CELL VOLUME 77.3 fl (80-96); MEAN PLT VOLUME 7.5 fl (7.5-11.1); MONO % 6.7 % (3.8-10.2); NEUT % 74.3 % (42.8-82.8); PLATELET COUNT 223 K/MM3 (134-434); RBC 4.04 M/mm3 (3.60-5.2); WHITE BLOOD COUNT 8.7 K/mm3 (4.0-10.0)
[2020-10-26 06:40] LABS: POTASSIUM 3.6 mmol/L (3.5-5.1)
[2020-10-26 06:43] LABS: CALCIUM 7.8 mg/dL (8.5-10.1)
[2020-10-26 06:44] LABS: BLOOD UREA NITROGEN 9.5 mg/dL (7-18)
[2020-10-26 06:47] LABS: CREATININE 0.8 mg/dL (0.55-1.3)
[2020-10-26 07:54] LABS: ERYTHROCYTE SEDIMENTATION RATE 5 mm/hr (0-30)
[2020-10-26] MEDS ORDERED: PANTOPRAZOLE 40 MG TABLET PO SCH (10:00)
[2020-10-26] MEDS: PANTOPRAZOLE SODIUM 40 MG VIAL IVPUSH SCH (10:05)
[2020-10-26] MEDS ORDERED: ACETAMINOPHEN 325 MG TABLET (FP) PO PRN (18:15)
[2020-10-26] MEDS ORDERED: DULoxetine HCL 20 MG CAPSULE.DR PO ONE (18:16)
[2020-10-26] MEDS: SODIUM CHLORIDE 0.45%/POT 20 MEQ/1,000 ML INFUS.BAG IV SCH (18:56)
[2020-10-26] MEDS: PREGABALIN 100 MG CAPSULE PO SCH (21:26)
[2020-10-26] MEDS: ATORVASTATIN CA 40 MG TABLET (FP) PO SCH (21:27)
[2020-10-27] MEDS ORDERED: PIPERACILLIN/TAZOBACTAM 2.25 GM VIAL IVPB ONE ×3 (01:50→14:20)
[2020-10-27] MEDS ORDERED: DEXTROSE 5%-WATER - 50 ML IVPB ONE ×3 (01:51→14:21)
[2020-10-27] MEDS: PIPERACILLIN/TAZOB 2.25 GM 2.25 GM in DEXTROSE 5%-WATER - 50 ML IVPB SCH ×2 (03:00→08:15)
[2020-10-27] MEDS: PREGABALIN 100 MG CAPSULE PO SCH ×2 (05:57→14:18)
[2020-10-27] MEDS: INSULIN SLIDING SCALE (NOVOLOG) 1 VIAL SQ SCH ×3 (06:02→16:34)
[2020-10-27 06:39] LABS: ARTERIAL BLD GAS O2 SATURATION 96.4 mmHg (95-98); ARTERIAL BLOOD GAS BASE EXCESS -3.9 mmol/L (-2-2); ARTERIAL BLOOD GAS PO2 83.6 mmHg (80-100); ARTERIAL BLOOD GAS pH 7.407 (7.350-7.450)
[2020-10-27 06:40] LABS: ALLENS TEST POSITIVE
[2020-10-27 06:50] LABS: BASO % 0.4 % (0-2.0); EOS % 1.2 % (0-4.5); HEMATOCRIT 29.3 % (32.4-45.2); HEMOGLOBIN 9.5 GM/dL (10.7-15.3); LYMPH % 28.1 % (8-40); MCH 24.7 pg (25.7-33.7); MCHC 32.2 g/dl (32.0-36.0); MEAN CELL VOLUME 76.7 fl (80-96); MONO % 8.3 % (3.8-10.2); PLATELET COUNT 184 K/MM3 (134-434); RBC 3.82 M/mm3 (3.60-5.2)
[2020-10-27] MEDS ORDERED: INSULIN (LEVEMIR) 100 UNITS/ML UNITS SQ SCH (07:00)
[2020-10-27 07:10] LABS: POTASSIUM 4.3 mmol/L (3.5-5.1)
[2020-10-27 07:15] LABS: CALCIUM 7.5 mg/dL (8.5-10.1)
[2020-10-27 07:16] LABS: MAGNESIUM 1.6 mg/dL (1.8-2.4)
[2020-10-27 07:17] LABS: BLOOD UREA NITROGEN 7.3 mg/dL (7-18)
[2020-10-27 07:19] LABS: PHOSPHOROUS 2.6 mg/dL (2.5-4.9)
[2020-10-27 07:21] LABS: CREATININE 0.5 mg/dL (0.55-1.3)
[2020-10-27] MEDS ORDERED: MAGNESIUM SULF 50% (8.12 MEQ/2 ML-1 GM VIAL) IVPB ONE (08:31)
[2020-10-27] MEDS ORDERED: DULoxetine HCL 20 MG CAPSULE.DR PO SCH (10:00)
[2020-10-27] MEDS ORDERED: LACTATED RINGERS SOLUTION 1,000 ML/1,000 ML INFUS.BAG IV SCH (10:00)
[2020-10-27] MEDS ORDERED: PANTOPRAZOLE 40 MG TABLET PO SCH ×2 (10:00→10:45)
[2020-10-27 10:37] VITALS: PULSE 58
[2020-10-27] MEDS ORDERED: MAGNESIUM 2GM/50ML STERILE WATER IVPB IVPB ONE ×2 (11:00→15:30)
[2020-10-27] MEDS: SUCRALFATE 1 GM/10 ML UNIT DOSE CUPS PO SCH ×2 (11:21→14:21)
[2020-10-27 11:23] LABS: PLATELET ESTIMATE NORMAL
[2020-10-27 14:27] VITALS: BP 111/69; TEMP 97.9
== END 2020-10-27 18:52 | disposition home or self-care (01) | DRG 637 ==
LOC: SUPCPDRO 08:41 → JER 08:41 → JERBED 10:49 → J4S 10-25 00:39
PROVIDERS: ADMIT Internal Medicine Pulmonary Disease; ATTEND Internal Medicine
PROC: 0DB68ZX Excision of Stomach, Via Natural or Artificial Opening Endoscopic, Diagnostic (ICD-10-PCS; principal; 2020-10-27 09:00)
DX: E10.10 Type 1 diabetes mellitus with ketoacidosis without coma (principal); G93.41 Metabolic encephalopathy; E87.0 Hyperosmolality and hypernatremia; N17.9 Acute kidney failure, unspecified; M86.9 Osteomyelitis, unspecified; K92.0 Hematemesis; B37.81 Candidal esophagitis; K22.10 Ulcer of esophagus without bleeding; E86.0 Dehydration; R00.0 Tachycardia, unspecified; E87.5 Hyperkalemia; D72.829 Elevated white blood cell count, unspecified; F14.90 Cocaine use, unspecified, uncomplicated; R12 Heartburn; R53.83 Other fatigue; E10.610 Type 1 diabetes mellitus with diabetic neuropathic arthropathy; E83.39 Other disorders of phosphorus metabolism; Z98.84 Bariatric surgery status; I49.49 Other premature depolarization; K21.00 Gastro-esophageal reflux disease with esophagitis, without bleeding; K29.70 Gastritis, unspecified, without bleeding; L03.031 Cellulitis of right toe
CPT/HCPCS: 36415; 36600; 70450-TC; 71045-TC-FY; 71275-TC; 80048; 80053; 80307; 81003; 82010; 82140; 82272; 82550; 82553; 82728; 82803; 82962; 83540; 83550; 83605; 83615; 83690; 83735; 84100; 84439; 84443; 84466; 84484; 85025; 85027; 85379; 85610; 85651; 85730; 86140; 86850; 86900; 86901; 87040; 87045; 87046; 87070; 87086; 87186; 87324; 87449; 88305-TC; 93005; 93010; 93306-TC; 93970-TC; 99285-25; C9803; J3480; Q9967; U0003

== ENCOUNTER 2020-11-01 15:01 | Inpatient (IN) | payer BC ==
[~2020-11-01 15:01] MED LIST: ENOXAPARIN NA (PORCINE) 40 MG/0.4 ML DISP.SYRIN SQ SCH
[2020-11-01 15:17] VITALS: BMI 22.3
[2020-11-01] MEDS ORDERED: ONDANSETRON 4 MG/2 ML VIAL IVPUSH ONE ×2 (16:15→16:17)
[2020-11-01] MEDS ORDERED: FAMOTIDINE 20 MG/50 ML IVPB 20 MG/50 ML MG IVPB ONE ×2 (16:17→16:36)
[2020-11-01] MEDS ORDERED: MAG HYDROX/AL HYDROX/SIMETH 30 ML UNIT-DOSE CUP PO ONE (16:17)
[2020-11-01] MEDS ORDERED: MAG HYDROX/AL HYDROX/SIMETH 30 ML UNIT-DOSE CUP ONE (16:35)
[2020-11-01] MEDS ORDERED: ONDANSETRON 4 MG/2 ML VIAL ONE (16:35)
[2020-11-01 16:46] LABS: BASO % 0.4 % (0-2.0); HEMATOCRIT 35.8 % (32.4-45.2); HEMOGLOBIN 10.7 GM/dL (10.7-15.3); LYMPH % 6.3 % (8-40); MCH 24.7 pg (25.7-33.7); MEAN CELL VOLUME 82.3 fl (80-96); MEAN PLT VOLUME 7.5 fl (7.5-11.1); MONO % 10.2 % (3.8-10.2); NEUT % 83.1 % (42.8-82.8); PLATELET COUNT 446 K/MM3 (134-434); RBC 4.35 M/mm3 (3.60-5.2); RDW 19.1 % (11.6-15.6); WHITE BLOOD COUNT 19.8 K/mm3 (4.0-10.0)
[2020-11-01 17:03] LABS: ALBUMIN 3.9 g/dl (3.4-5.0); CALCIUM 8.6 mg/dL (8.5-10.1)
[2020-11-01 17:04] LABS: MAGNESIUM 2.3 mg/dL (1.8-2.4)
[2020-11-01 17:06] LABS: CREATININE 1.3 mg/dL (0.55-1.3)
[2020-11-01 17:08] LABS: BILIRUBIN,TOTAL 0.5 mg/dL (0.2-1); TOT PROT 7.3 g/dl (6.4-8.2)
[2020-11-01] MEDS ORDERED: VASOPRESSIN 40 UNITS in SODIUM CHLORIDE 98 ML IVPB SCH (17:15)
[2020-11-01] MEDS ORDERED: LACTATED RINGERS SOLUTION 1000 ML INFUS.BAG IV ONE (17:20)
[2020-11-01] MEDS ORDERED: INSULIN REGULAR 100 UNITS in SODIUM CHLORIDE 99 ML IVPB SCH (17:30)
[2020-11-01] MEDS: INSULIN REGULAR HUMAN 100 UNITS/ML *VIAL* (FOR IVP) IVPUSH ONE ×2 (18:15→20:39)
[2020-11-01 18:20] LABS: VENOUS BASE EXCESS -24.3 mmol/L (-2-2); VENOUS O2 SATURATION 61.2 % (70-80); VENOUS PCO2 19.2 mmHg (38-52)
[2020-11-01 18:21] LABS: VENOUS PH 7.023 (7.310-7.410)
[2020-11-01 19:05] LABS: ANISOCYTOSIS 0; MACROCYTOSIS 0; PLATELET ESTIMATE NORMAL
[2020-11-01] MEDS ORDERED: LACTATED RINGERS SOLUTION 1000 ML INFUS.BAG IV STA (20:20)
[2020-11-01 20:29] LABS: VENOUS BASE EXCESS -22.8 mmol/L (-2-2); VENOUS O2 SATURATION 30.6 % (70-80); VENOUS PCO2 25.1 mmHg (38-52)
[2020-11-01 20:30] LABS: VENOUS PH 7.032 (7.310-7.410)
[2020-11-01] MEDS ORDERED: SODIUM BICARBONATE 8.4% 50 MEQ/50 ML DISP.SYRIN IVPUSH ONE (20:52)
[2020-11-01 20:57] LABS: CALCIUM 8.4 mg/dL (8.5-10.1)
[2020-11-01 20:58] LABS: BLOOD UREA NITROGEN 14.2 mg/dL (7-18)
[2020-11-01 21:01] LABS: CREATININE 1.2 mg/dL (0.55-1.3)
[2020-11-01] MEDS ORDERED: SODIUM CHLORIDE 0.45%/POT 20 MEQ/1,000 ML INFUS.BAG IV SCH (21:45)
[2020-11-01] MEDS ORDERED: SODIUM BICARBONATE 8.4% - 50 ML ONE (22:08)
[2020-11-01] MEDS ORDERED: INSULIN (NOVOLOG) ASPART 100 UNITS/ML 10ML VIAL SQ ONE (23:23)
[2020-11-02] MEDS ORDERED: ENOXAPARIN NA (PORCINE) 40 MG/0.4 ML DISP.SYRIN SQ SCH ×2 (01:00→10:00)
[2020-11-02] MEDS ORDERED: INSULIN REGULAR HUMAN 100 UNITS/ML *VIAL IVPUSH ONE (01:58)
[2020-11-02] MEDS ORDERED: INSULIN REGULAR HUMAN 100 UNITS/ML *VIAL SQ ONE (01:58)
[2020-11-02] MEDS ORDERED: INSULIN (NOVOLOG) ASPART 100 UNITS/ML 10ML VIAL SQ ONE (02:45)
[2020-11-02] MEDS ORDERED: SODIUM CHLORIDE 0.45% 1,000 ML IV SCH (05:15)
[2020-11-02 05:31] LABS: EPI CELLS 27 /uL (0-25.1); HYALINE CASTS 3 /uL (0-3.1); URINE APPEARANCE Error; URINE BACTERIA 154 /uL (0-1359); URINE BILIRUBIN NEGATIVE (NEGATIVE); URINE COLOR YELLOW; URINE GLUCOSE (UA) 3+ (NEGATIVE); URINE KETONE 4+ (NEGATIVE); URINE LEUK ESTERASE NEGATIVE (NEGATIVE); URINE NITRITE NEGATIVE (NEGATIVE); URINE PROTEIN 1+ (NEGATIVE); URINE RBC 8 /uL (0-23.9); URINE UROBILINOGEN 0.2 mg/dL (0.2-1.0); URINE WBC 5 /uL (0-25.8)
[2020-11-02 05:31] LABS: CALCIUM 9.2 mg/dL (8.5-10.1)
[2020-11-02 05:32] LABS: BLOOD UREA NITROGEN 10.9 mg/dL (7-18)
[2020-11-02 05:35] LABS: CREATININE 1.2 mg/dL (0.55-1.3)
[2020-11-02] MEDS ORDERED: LACTATED RINGERS SOLUTION 1,000 ML with POTASSIUM CHLORIDE 20 MEQ IV ONE (05:37)
[2020-11-02] MEDS: INSULIN SLIDING SCALE (NOVOLOG) 1 VIAL SQ SCH ×3 (06:12→18:06)
[2020-11-02 06:56] LABS: VENOUS O2 SATURATION 77.3 % (70-80); VENOUS PCO2 33.8 mmHg (38-52); VENOUS PH 7.304 (7.310-7.410)
[2020-11-02 07:13] LABS: BASO % 0.2 % (0-2.0); EOS % 0.2 % (0-4.5); HEMATOCRIT 35.5 % (32.4-45.2); HEMOGLOBIN 11.2 GM/dL (10.7-15.3); LYMPH % 8.6 % (8-40); MCH 24.7 pg (25.7-33.7); MCHC 31.6 g/dl (32.0-36.0); MEAN CELL VOLUME 78.2 fl (80-96); MEAN PLT VOLUME 7.6 fl (7.5-11.1); MONO % 9.9 % (3.8-10.2); NEUT % 81.1 % (42.8-82.8); PLATELET COUNT 433 K/MM3 (134-434); RBC 4.54 M/mm3 (3.60-5.2); RDW 18.4 % (11.6-15.6); WHITE BLOOD COUNT 14.2 K/mm3 (4.0-10.0)
[2020-11-02 07:30] LABS: ALBUMIN 3.7 g/dl (3.4-5.0)
[2020-11-02 07:33] LABS: MAGNESIUM 1.8 mg/dL (1.8-2.4)
[2020-11-02 07:34] LABS: CREATININE 1.1 mg/dL (0.55-1.3)
[2020-11-02 07:35] LABS: BLOOD UREA NITROGEN 10.9 mg/dL (7-18); CALCIUM 8.6 mg/dL (8.5-10.1); TOT PROT 6.7 g/dl (6.4-8.2)
[2020-11-02 07:38] LABS: PHOSPHOROUS 2.2 mg/dL (2.5-4.9)
[2020-11-02 07:40] LABS: BILIRUBIN,TOTAL 0.4 mg/dL (0.2-1)
[2020-11-02] MEDS: INSULIN (LEVEMIR) 100 UNITS/ML UNITS SQ SCH (09:47)
[2020-11-02] MEDS: MUPIROCIN 2% TOPICAL OINTMENT FOR DECOLONIZATION NS SCH (09:47)
[2020-11-02] MEDS ORDERED: CHLORHEXIDINE GLUCONATE 4% CLEANSER FOR DECOLONIZATION TP SCH (22:00)
[2020-11-02] MEDS ORDERED: PREGABALIN 100 MG CAPSULE PO SCH (22:45)
[2020-11-02] MEDS ORDERED: PREGABALIN 100 MG CAPSULE PO ONE (23:15)
[2020-11-03] MEDS: INSULIN SLIDING SCALE (NOVOLOG) 1 VIAL SQ SCH ×4 (06:39→16:45)
[2020-11-03] MEDS ORDERED: INSULIN (LEVEMIR) 100 UNITS/ML UNITS SQ SCH ×2 (07:00)
[2020-11-03] MEDS ORDERED: INSULIN SLIDING SCALE (NOVOLOG) 1 VIAL SQ SCH (07:00)
[2020-11-03 08:48] LABS: BASO % 1.1 % (0-2.0); EOS % 0.2 % (0-4.5); HEMATOCRIT 35.2 % (32.4-45.2); HEMOGLOBIN 11.1 GM/dL (10.7-15.3); LYMPH % 19.8 % (8-40); MCH 24.9 pg (25.7-33.7); MCHC 31.7 g/dl (32.0-36.0); MEAN CELL VOLUME 78.7 fl (80-96); MEAN PLT VOLUME 7.8 fl (7.5-11.1); MONO % 5.6 % (3.8-10.2); NEUT % 73.3 % (42.8-82.8); RBC 4.47 M/mm3 (3.60-5.2); WHITE BLOOD COUNT 11.9 K/mm3 (4.0-10.0)
[2020-11-03 08:49] LABS: CALCIUM 8.5 mg/dL (8.5-10.1)
[2020-11-03 08:50] LABS: ALBUMIN 3.4 g/dl (3.4-5.0); BLOOD UREA NITROGEN 9.8 mg/dL (7-18); MAGNESIUM 1.8 mg/dL (1.8-2.4)
[2020-11-03 08:53] LABS: PHOSPHOROUS 2.4 mg/dL (2.5-4.9)
[2020-11-03 08:54] LABS: BILIRUBIN,TOTAL 0.6 mg/dL (0.2-1)
[2020-11-03 08:59] LABS: TOT PROT 6.6 g/dl (6.4-8.2)
[2020-11-03] MEDS: INSULIN (LEVEMIR) 100 UNITS/ML UNITS SQ SCH (09:15)
[2020-11-03] MEDS: MUPIROCIN 2% TOPICAL OINTMENT FOR DECOLONIZATION NS SCH (09:15)
[2020-11-03] MEDS: ENOXAPARIN NA (PORCINE) 40 MG/0.4 ML DISP.SYRIN SQ SCH (09:43)
[2020-11-03] MEDS ORDERED: MUPIROCIN 2% TOPICAL OINTMENT FOR DECOLONIZATION NS SCH (10:00)
[2020-11-03 13:14] LABS: PLATELET ESTIMATE NORMAL
[2020-11-03 13:23] LABS: PLATELET COUNT 383 K/MM3 (134-434)
[2020-11-03] MEDS: ACETAMINOPHEN 325 MG TABLET (FP) PO PRN (19:06)
[2020-11-03] MEDS ORDERED: CHLORHEXIDINE GLUCONATE 4% CLEANSER FOR DECOLONIZATION TP SCH (22:00)
[2020-11-03] MEDS ORDERED: PREGABALIN 100 MG CAPSULE PO SCH (22:30)
[2020-11-03] MEDS: INSULIN (NOVOLOG) ASPART 100 UNITS/ML 10ML VIAL SQ SCH (22:34)
[2020-11-03] MEDS: PREGABALIN 100 MG CAPSULE PO SCH (22:34)
[2020-11-03] MEDS: PANTOPRAZOLE 40 MG TABLET PO SCH (23:59)
[2020-11-04] MEDS: METOCLOPRAMIDE HCL 10 MG TABLET (FP) PO SCH ×3 (06:03→16:48)
[2020-11-04] MEDS: PREGABALIN 100 MG CAPSULE PO SCH ×3 (06:03→21:50)
[2020-11-04] MEDS: INSULIN SLIDING SCALE (NOVOLOG) 1 VIAL SQ SCH ×3 (06:05→16:46)
[2020-11-04] MEDS: ACETAMINOPHEN 325 MG TABLET (FP) PO PRN (06:52)
[2020-11-04] MEDS ORDERED: INSULIN (LEVEMIR) 100 UNITS/ML UNITS SQ SCH ×2 (07:00→22:00)
[2020-11-04 09:10] LABS: BASO % 0.7 % (0-2.0); EOS % 0.2 % (0-4.5); HEMATOCRIT 34.8 % (32.4-45.2); HEMOGLOBIN 11.2 GM/dL (10.7-15.3); LYMPH % 19.2 % (8-40); MCH 24.7 pg (25.7-33.7); MCHC 32.2 g/dl (32.0-36.0); MEAN CELL VOLUME 76.9 fl (80-96); MEAN PLT VOLUME 7.2 fl (7.5-11.1); MONO % 8.5 % (3.8-10.2); NEUT % 71.4 % (42.8-82.8); PLATELET COUNT 377 K/MM3 (134-434); RBC 4.53 M/mm3 (3.60-5.2); RDW 18.5 % (11.6-15.6); WHITE BLOOD COUNT 9.7 K/mm3 (4.0-10.0)
[2020-11-04 09:27] LABS: CALCIUM 8.2 mg/dL (8.5-10.1)
[2020-11-04 09:28] LABS: ALBUMIN 3.2 g/dl (3.4-5.0); BLOOD UREA NITROGEN 10.4 mg/dL (7-18); MAGNESIUM 1.8 mg/dL (1.8-2.4)
[2020-11-04 09:31] LABS: CREATININE 0.8 mg/dL (0.55-1.3)
[2020-11-04 09:32] LABS: BILIRUBIN,TOTAL 0.6 mg/dL (0.2-1)
[2020-11-04] MEDS: ENOXAPARIN NA (PORCINE) 40 MG/0.4 ML DISP.SYRIN SQ SCH (09:49)
[2020-11-04] MEDS ORDERED: KCL 10 MEQ IVPB 10 MEQ/100 ML INFUS.BAG IVPB SCH (11:00)
[2020-11-04] MEDS: POTASSIUM CHLORIDE 40 MEQ in SODIUM CHLORIDE 1,000 ML IV SCH ×2 (11:24→22:45)
[2020-11-04] MEDS ORDERED: POTASSIUM PHOSPHATE 30 MM in SODIUM CHLORIDE 500 ML IVPB ONE (11:30)
[2020-11-04] MEDS: POTASSIUM CHLORIDE TABS 20 MEQ TABLET.ER (FP) PO SCH ×2 (11:35→22:45)
[2020-11-04] MEDS ORDERED: ATORVASTATIN CA 40 MG TABLET (FP) PO SCH (22:00)
[2020-11-04] MEDS: INSULIN (NOVOLOG) ASPART 100 UNITS/ML 10ML VIAL SQ SCH (22:00)
[2020-11-04] MEDS: PANTOPRAZOLE 40 MG TABLET PO SCH (22:46)
[2020-11-05] MEDS: PREGABALIN 100 MG CAPSULE PO SCH ×2 (05:22→14:24)
[2020-11-05] MEDS: METOCLOPRAMIDE HCL 10 MG TABLET (FP) PO SCH ×3 (06:47→17:06)
[2020-11-05] MEDS: INSULIN SLIDING SCALE (NOVOLOG) 1 VIAL SQ SCH ×3 (06:47→17:04)
[2020-11-05] MEDS ORDERED: INSULIN (LEVEMIR) 100 UNITS/ML UNITS SQ SCH (07:00)
[2020-11-05 08:40] LABS: HEMOGLOBIN 9.4 GM/dL (10.7-15.3); MCH 25.4 pg (25.7-33.7); MCHC 32.5 g/dl (32.0-36.0); MEAN CELL VOLUME 78.1 fl (80-96); MEAN PLT VOLUME 7.2 fl (7.5-11.1); PLATELET COUNT 297 K/MM3 (134-434); RBC 3.72 M/mm3 (3.60-5.2); RDW 19.5 % (11.6-15.6); WHITE BLOOD COUNT 5.5 K/mm3 (4.0-10.0)
[2020-11-05 08:48] LABS: BLOOD UREA NITROGEN 8.1 mg/dL (7-18); CALCIUM 7.9 mg/dL (8.5-10.1)
[2020-11-05 08:49] LABS: ALBUMIN 2.6 g/dl (3.4-5.0)
[2020-11-05 08:52] LABS: CREATININE 0.7 mg/dL (0.55-1.3)
[2020-11-05 08:53] LABS: BILIRUBIN,TOTAL 0.4 mg/dL (0.2-1)
[2020-11-05] MEDS: ENOXAPARIN NA (PORCINE) 40 MG/0.4 ML DISP.SYRIN SQ SCH (09:14)
[2020-11-05] MEDS: POTASSIUM CHLORIDE 40 MEQ in SODIUM CHLORIDE 1,000 ML IV SCH (10:56)
[2020-11-05 15:46] VITALS: BP 132/90; PULSE 90; TEMP 98.5
== END 2020-11-05 17:15 | disposition home or self-care (01) | DRG 638 ==
LOC: JER 15:01 → JERBED 18:29 → JICU 11-02 04:12 → J6WEST-2 11-02 21:08
PROVIDERS: ADMIT Internal Medicine Pulmonary Disease; ATTEND Internal Medicine
DX: E11.10 Type 2 diabetes mellitus with ketoacidosis without coma (principal); M86.671 Other chronic osteomyelitis, right ankle and foot; E87.2 Acidosis; E11.65 Type 2 diabetes mellitus with hyperglycemia; F17.210 Nicotine dependence, cigarettes, uncomplicated; E78.5 Hyperlipidemia, unspecified; Z79.4 Long term (current) use of insulin; E11.42 Type 2 diabetes mellitus with diabetic polyneuropathy; Z91.14 Patient's other noncompliance with medication regimen; D72.829 Elevated white blood cell count, unspecified
CPT/HCPCS: 36415; 71045-TC-FY; 73630-TC-RT-FY; 80048; 80053; 80061; 81003; 82010; 82803; 82962; 83036; 83690; 83721; 83735; 84100; 85025; 85027; 85651; 86140; 93005; 93010; 99285-25; C9803; U0003